=== PATIENT | male | born 1965 | race Caucasian/White ===

== ENCOUNTER 2018-08-26 08:07 | Emergency (ER) | payer BC ==
--- NOTE | 2018-08-26 08:26 | EDM.PDOC ---
ED HPI GENERAL MEDICAL PROBLEM - General Chief Complaint: Cardiovascular Problem Stated Complaint: back pain and high bp Time Seen by Provider: 08/26/18 08:24 Source of Information: Reports: Patient - History of Present Illness INITIAL COMMENTS - FREE TEXT/NARRATIVE: HISTORY AND PHYSICAL: History of present illness: [Patient presents with hypertension, he has had elevated blood pressure readings on multiple occasions at home via some friends that are nurses, has had multiple readings with systolic 180 diastolic 95 200 and presents as such her blood pressures on file 207/105 at current No fever nausea vomiting diarrhea constipation chest pain shortness breath headache dizziness palpitation no bowel or urine symptoms] Review of systems: As per history of present illness and below otherwise all systems reviewed and negative. Past medical history: As per history of present illness and as reviewed below otherwise noncontributory. Surgical history: As per history of present illness and as reviewed below otherwise noncontributory. Social history: No reported history of drug or alcohol abuse. Family history: As per history of present illness and as reviewed below otherwise noncontributory. Physical exam: HEENT: Atraumatic, normocephalic, pupils reactive, negative for conjunctival pallor or scleral icterus, mucous membranes moist, throat clear, neck supple, nontender, trachea midline. Lungs: Clear to auscultation, breath sounds equal bilaterally, chest nontender. Heart: S1S2, regular, negative for clicks, rubs, or JVD. Abdomen: Soft, nondistended, nontender. Negative for masses or hepatosplenomegaly. Negative for costovertebral tenderness. Pelvis: Stable nontender. Genitourinary: Deferred. Rectal: Deferred. Extremities: Atraumatic, negative for cords or calf pain. Neurovascular unremarkable. Neuro: Awake, alert, oriented. Cranial nerves II through XII unremarkable. Cerebellum unremarkable. Motor and sensory unremarkable throughout. Exam nonfocal. 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 abdomen Pain Score (Numeric/FACES): 1 - Related Data Allergies Allergy/AdvReac Type Severity Reaction Status Date / Time No Known Allergies Allergy Verified 08/26/18 08:12 Home Meds: Home Meds . [No Known Home Meds] 08/26/18 [History] Past Medical History HEENT History: Reports: Cataract Cardiovascular History: Reports: None Respiratory History: Reports: None Gastrointestinal History: Reports: None Genitourinary History: Reports: None Musculoskeletal History: Reports: None Neurological History: Reports: None Psychiatric History: Reports: None Endocrine/Metabolic History: Reports: None Hematologic History: Reports: None Immunologic History: Reports: None Oncologic (Cancer) History: Reports: None Dermatologic History: Reports: None - Past Surgical History Head Surgeries/Procedures: Reports: None HEENT Surgical History: Reports: None Cardiovascular Surgical History: Reports: None Respiratory Surgical History: Reports: None GI Surgical History: Reports: None Male Surgical History: Reports: None Endocrine Surgical History: Reports: None Neurological Surgical History: Reports: None Musculoskeletal Surgical History: Reports: None Oncologic Surgical History: Reports: None Dermatological Surgical History: Reports: None Social & Family History - Family History Family Medical History: Noncontributory - Tobacco Use Smoking Status *Q: Current Every Day Smoker Years of Tobacco use: 35 Packs/Tins Daily: 2 - Caffeine Use Caffeine Use: Reports: Coffee - Recreational Drug Use Recreational Drug Use: No ED ROS GENERAL - Review of Systems Review Of Systems: See Below ED EXAM, GENERAL - Physical Exam Exam: See Below Course - Vital Signs Last Recorded V/S: Last Vital Signs Temp 96.1 F 08/26/18 08:11 Pulse 94 08/26/18 09:00 Resp 18 08/26/18 09:00 BP 176/101 H 08/26/18 09:09 Pulse Ox 93 L 08/26/18 09:00 - Orders/Labs/Meds Labs: Laboratory Tests 08/26/18 08/26/18 Range/Units 08:24 08:24 WBC 12.27 H (4.0-11.0) K/uL RBC 5.79 (4.50-5.90) M/uL Hgb 17.5 H (13.0-17.0) g/dL Hct 51.4 H (38.0-50.0) % MCV 88.8 (80.0-98.0) fL MCH 30.2 (27.0-32.0) pg MCHC 34.0 (31.0-37.0) g/dL RDW Std Deviation 42.0 (28.0-62.0) fl RDW Coeff of Mariella 13 (11.0-15.0) % Plt Count 284 (150-400) K/uL MPV 10.20 (7.40-12.00) fL Neut % (Auto) 69.4 (48.0-80.0) % Lymph % (Auto) 20.9 (16.0-40.0) % [place] % (Auto) 6.2 (0.0-15.0) % Eos % (Auto) 2.8 (0.0-7.0) % Baso % (Auto) 0.7 (0.0-1.5) % Neut # (Auto) 8.5 H (1.4-5.7) K/uL Lymph # (Auto) 2.6 H (0.6-2.4) K/uL [place] # (Auto) 0.8 (0.0-0.8) K/uL Eos # (Auto) 0.3 (0.0-0.7) K/uL Baso # (Auto) 0.1 (0.0-0.1) K/uL Nucleated RBC % 0.0 /100WBC Nucleated RBCs # 0 K/uL Sodium 140 (136-148) mmol/L Potassium 4.0 (3.5-5.1) mmol/L Chloride 103 (98-107) mmol/L Carbon Dioxide 24.7 (21.0-32.0) mmol/L BUN 11 (7.0-18.0) mg/dL Creatinine 1.1 (0.8-1.3) mg/dL Est Cr Clr Drug Dosing 77.66 mL/min Estimated GFR (MDRD) > 60.0 ml/min Glucose 114 H (74-106) mg/dL Calcium 9.6 (8.5-10.1) mg/dL Total Bilirubin 0.5 (0.2-1.0) mg/dL AST 24 (15-37) IU/L ALT 46 (14-63) IU/L Alkaline Phosphatase 89 (46-116) U/L Troponin I < 0.050 (0.000-0.056) ng/mL Total Protein 8.3 H (6.4-8.2) g/dL Albumin 4.4 (3.4-5.0) g/dL Globulin 3.9 (2.6-4.0) g/dL Albumin/Globulin Ratio 1.1 (0.9-1.6) Meds: Medications Discontinued Medications Generic Name Dose Route Start Last Admin Trade Name Bhupendra PRN Reason Stop Dose Admin Clonidine HCl 0.1 mg 08/26/18 08:31 08/26/18 08:41 Catapres PO 08/26/18 08:32 0.1 mg ONETIME ONE Administration Lisinopril/HCTZ 1 tab 08/26/18 08:29 08/26/18 08:41 Lisinopril-Hctz 10-12.5 Mg PO 08/26/18 08:30 1 tab ONETIME ONE Administration Departure - Departure Time of Disposition: 09:10 Disposition: Home, Self-Care 01 Condition: Good Clinical Impression: Hypertension Referrals: PCP,Unknown [Primary Care Provider] - Forms: ED Department Discharge Additional Instructions: Medication as prescribed Return if symptoms persist or worsen Follow-up with primary care provider call phone number below to schedule appropriate follow-up for continued management [facility] [address] [place] [address] The following information is given to patients seen in the emergency department who are being discharged to home. This information is to outline your options for follow-up care. We provide all patients seen in our emergency department with a follow-up referral. The need for follow-up, as well as the timing and circumstances, are variable depending upon the specifics of your emergency department visit. If you don't have a primary care physician on staff, we will provide you with a referral. We always advise you to contact your personal physician following an emergency department visit to inform them of the circumstance of the visit and for follow-up with them and/or the need for any referrals to a consulting specialist. The emergency department will also refer you to a specialist when appropriate. This referral assures that you have the opportunity for follow-up care with a specialist. All of these measure are taken in an effort to provide you with optimal care, which includes your follow-up. Under all circumstances we always encourage you to contact your private physician who remains a resource for coordinating your care. When calling for follow-up care, please make the office aware that this follow-up is from your recent emergency room visit. If for any reason you are refused follow-up, please contact the emergency department at and asked to speak to the emergency department charge nurse.
[2018-08-26] MEDS ORDERED: Lisinopril/Hydrochlorothiazide 10-12.5 MG Tab PO ONE (08:29)
[2018-08-26] MEDS ORDERED: cloNIDine 0.1 MG Tab PO ONE (08:31)
[2018-08-26 09:00] LABS: CHLORIDE,CL 103 mmol/L (98-107); SODIUM,NA 140 mmol/L (136-148)
== END 2018-08-26 09:30 | disposition home or self-care (01) ==
LOC: MW.ED 08:07
DX: I10 Essential (primary) hypertension (principal); F17.210 Nicotine dependence, cigarettes, uncomplicated
CPT/HCPCS: 36415; 80053; 84484; 85025; 93005; 99283; A9270

== ENCOUNTER 2024-02-05 06:44 | Emergency (ER) | payer BC ==
[2024-02-05 07:10] LABS: BASOPHILS ABSOLUTE AUTO 0.08 K/uL (0.00-0.20); BASOPHILS PERCENT AUTO 0.4 % (0.0-1.0); EOSINOPHILS ABSOLUTE AUTO 0.01 K/uL (0.00-0.45); EOSINOPHILS PERCENT AUTO 0.1 % (0.0-6.0); HEMATOCRIT 50.5 % (42.0-52.0); HEMOGLOBIN 17.7 g/dL (14.0-18.0); IMMATURE GRAN ABSOLUTE AUTO 0.06 K/uL (0.00-0.05); IMMATURE GRAN PERCENT AUTO 0.3 % (0.0-0.4); LYMPHOCYTES PERCENT AUTO 5.5 % (24.0-44.0); MEAN CORPUSCULAR HEMOGLOBIN 30.8 pg (28.0-32.0); MEAN PLATELET VOLUME 9.8 fL (9.4-12.4); MONOCYTES ABSOLUTE AUTO 0.78 K/uL (0.00-0.80); MONOCYTES PERCENT AUTO 4.3 % (0.0-8.0); NEUTROPHILS ABSOLUTE AUTO 16.37 K/uL (1.80-7.70); NEUTROPHILS PERCENT AUTO 89.4 % (41.0-71.0); PLATELET COUNT,PLT 325 K/uL (150-400); RED BLOOD CELL COUNT 5.74 M/uL (4.52-5.90)
[2024-02-05] MEDS: Aspirin 81 MG Tab.Chew PO ONE (07:21)
[2024-02-05] MEDS: Morphine 4 MG/ML Syringe IVPUSH ONE (07:22)
[2024-02-05] MEDS: Ondansetron 4 MG/2 ML SDV IVPUSH ONE (07:22)
[2024-02-05] MEDS: Sodium Chloride 0.9% 10 ML Syringe FLUSH PRN (07:22)
[2024-02-05] MEDS: Nitroglycerin 0.4 MG Tab.SL SL PRN (07:22)
[2024-02-05 07:29] LABS: A/G RATIO 1.1 (0.9-1.6); ALBUMIN 4.1 g/dL (3.4-5.0); BILIRUBIN TOTAL 3.6 mg/dL (0.2-1.0); CALCIUM 9.6 mg/dL (8.5-10.1); CARBON DIOXIDE,CO2 26.5 mmol/L (21.0-32.0); CREATININE 1.2 mg/dL (0.8-1.3); EST CRCL DRUG DOSING (CG) 64.13 mL/min; MAGNESIUM 1.9 mg/dL (1.8-2.4); POTASSIUM,K 3.7 mmol/L (3.5-5.1); PROTEIN TOTAL,TP 7.9 g/dL (6.4-8.2)
[2024-02-05] MEDS: Labetalol 100 MG/20 ML MDV IVPUSH ONE (07:40)
[2024-02-05] MEDS: Sodium Chloride 0.9% 1,000 ML IV ONE ×3 (07:44→09:08)
[2024-02-05] MEDS: HYDROmorphone 0.5 MG/0.5 ML Syringe IVPUSH ONE (07:49)
[2024-02-05 08:03] LABS: INR 0.98 (0.86-1.11)
[2024-02-05] MEDS: HYDROmorphone 1 MG/ML Syringe IVPUSH ONE (08:21)
[2024-02-05 08:32] LABS: CORONAVIRUS COVID-19 NAA NEGATIVE (NEGATIVE); INFLUENZA A NAA NEGATIVE (NEGATIVE); INFLUENZA B NAA NEGATIVE (NEGATIVE); RESPIRATORY SYNCYTIAL VIR NAA NEGATIVE (NEGATIVE)
[2024-02-05] MEDS: Iopamidol 755 MG/ML 500 ML Multipack Bottle IVPUSH STA (08:40)
[2024-02-05] MEDS: Piperacillin/Tazobactam 4.5 GM in Sodium Chloride 0.9% 100 ML IV ONE (09:11)
[2024-02-05] MEDS ORDERED: Sodium Chloride 0.9% 1,000 ML IV ONE (09:35)
[2024-02-05 09:46] LABS: A/G RATIO 1.1 (0.9-1.6); ALBUMIN 3.5 g/dL (3.4-5.0); BILIRUBIN TOTAL 2.6 mg/dL (0.2-1.0); CALCIUM 8.9 mg/dL (8.5-10.1); CARBON DIOXIDE,CO2 26.6 mmol/L (21.0-32.0); CREATININE 1.2 mg/dL (0.8-1.3); EST CRCL DRUG DOSING (CG) 64.13 mL/min; POTASSIUM,K 3.8 mmol/L (3.5-5.1); PROTEIN TOTAL,TP 6.8 g/dL (6.4-8.2)
[2024-02-05] MEDS ORDERED: droPERidol 1.25 MG in Sodium Chloride 0.9% 50 ML IV ONE (10:09)
[2024-02-05] MEDS: Sodium Chloride 0.9% 1,000 ML IV SCH (10:15)
[2024-02-05] MEDS ORDERED: droPERidol 5 MG/2 ML SDV IVPUSH ONE (10:15)
[2024-02-05] MEDS: droPERidol 5 MG/2 ML SDV IVPUSH ONE (10:15)
[2024-02-05] MEDS: HYDROmorphone 0.5 MG/0.5 ML Syringe IVPUSH PRN (10:31)
== END 2024-02-05 11:10 ==
LOC: MW.ED 06:44
DX: K80.71 Calculus of gallbladder and bile duct without cholecystitis with obstruction (principal); K85.10 Biliary acute pancreatitis without necrosis or infection; I10 Essential (primary) hypertension; R07.9 Chest pain, unspecified; R74.01 Elevation of levels of liver transaminase levels; Z86.16 Personal history of COVID-19; Z79.899 Other long term (current) drug therapy
CPT/HCPCS: 0241U; 36415; 71045; 71275; 74174; 80053; 80307; 83605; 83690; 83735; 83880; 84484; 85025; 85610; 87040; 93005; 96361; 96365; 96375; 96376; 99285; A9270; J1171; J1790; J2270; J2405; J2543; J3490; J7030; Q9967; 93010; J1921